=== PATIENT | male | born 1940 | race Caucasian/White ===

== ENCOUNTER 2017-01-30 09:09 | Inpatient (IN) | payer OTHER ==
--- NOTE | ~2017-01-30 | EKG ---
PATIENT: MADISON BRIGGS UNIT #: [id number] Ventricular Rate: 60 BPM Atrial Rate: 60 BPM P-R Interval: 156 ms QRS Duration: 100 ms Q-T Interval: 436 ms QTC Calculation(Bezet): 436 ms P [place]: 66 degrees Calculated R [place]: -21 degrees Calculated T [place]: 49 degrees Diagnosis Line: Normal sinus rhythm Diagnosis Line: Normal ECG Diagnosis Line: No previous ECGs available Diagnosis Line: Confirmed by RACHEL PETERS MD ([id number]) on 01/31/2017 Diagnosis Line: 4:06:17 PM INTERPRETING MD: FRAN NORTON
--- NOTE | ~2017-01-30 | EKG ---
PATIENT: MADISON BRIGGS UNIT #: [id number] Ventricular Rate: 57 BPM Atrial Rate: 57 BPM P-R Interval: 158 ms QRS Duration: 86 ms Q-T Interval: 428 ms QTC Calculation(Bezet): 416 ms P [place]: 10 degrees Calculated R [place]: -28 degrees Calculated T [place]: 15 degrees Diagnosis Line: Sinus bradycardia Diagnosis Line: Otherwise normal ECG Diagnosis Line: When compared with ECG of 02-FEB-2017 06:25, Diagnosis Line: (unconfirmed) Diagnosis Line: No significant change was found Diagnosis Line: Confirmed by OLENA CANO MD ([id number]) on 02/02/2017 Diagnosis Line: 10:47:47 PM INTERPRETING MD: JEROME NORTON
--- NOTE | ~2017-01-30 | CO ---
Unit #: [id number] #: [id number] Patient: MADISON BRIGGS [id number] [address] [place], [place] [address] [id number] I MR#: [id number] NAME: MADISON BRIGGS ROOM: 573 Age: 76 Sex: M Admission Date: 01/30/2017 : 1940 Attending Physician: Virginia Alba M.D. Primary Care Physician: J Carlos Stahl Jr., M.D. Consultation Date: 02/01/2017 CONSULTATION REPORT REASON FOR CONSULTATION New systolic congestive heart failure. HISTORY OF PRESENT ILLNESS This is a 76-year-old male with no prior cardiac history. He denies a history of chest pain, pressure, or discomfort. Denies shortness of air, orthopnea, dyspnea on exertion, or PND. Denies palpitations. He presented to the ER after 2 episodes of witnessed syncope per his . He was walking in his kitchen when he felt lightheaded and lost consciousness for several seconds. A few minutes later, he had a repeat episode with loss of consciousness of 4 to 5 minutes. Upon arousal, he was nauseated. Denies prior episodes. He states he is fairly active, walking daily in the park with his grandson with no shortness of air or chest discomfort. An echocardiogram was done, which showed a left ventricular ejection of 35% to 40%. We were asked to see him to evaluate for systolic congestive heart failure. He has a prior medical history of chronic kidney disorder, for which he follows with [facility]. He states he has one kidney smaller than the other and they just monitor his lab work. He also has a history of iron-deficiency anemia, GERD, history of bleeding ulcer, hypothyroidism, and history of snoring. PAST MEDICAL HISTORY 1. Chronic kidney disease. 2. Iron-deficiency anemia. 3. GERD. 4. History of bleeding ulcer. 5. Hypothyroidism. 6. Snoring. 7. Lifetime nonsmoker. PAST SURGICAL HISTORY 1. Hernia repair. 2. Colonoscopy. 3. EGD. HOME MEDICATIONS Pravastatin, Synthroid, iron supplement, and omeprazole. FAMILY HISTORY Denies a family history of premature coronary artery disease. SOCIAL HISTORY Unit #: [id number] #: [id number] Patient: MADISON BRIGGS The patient is retired. He denies alcohol or illicit drug use. He denies tobacco abuse. ALLERGIES No known drug allergies. REVIEW OF SYSTEMS Otherwise negative except for what was stated in the HPI. PHYSICAL EXAMINATION GENERAL: This is a pleasant 76-year-old male, in no acute distress. VITAL SIGNS: Temperature is 98.2, heart rate 68, respiratory rate 18, and blood pressure 142/82. Height 68 inches and 61.8 kilograms. HEENT: Head is atraumatic and normocephalic. Pupils are equal and round. Mucous membranes are moist. NECK: Supple. Trachea is midline. Negative for JVD. LUNGS: Clear to auscultation, decreased in the bases. Nonlabored respirations. CARDIOVASCULAR: S1 and S2. No murmur, rubs, or gallops. Regular rate and rhythm. ABDOMEN: Soft, nontender, and nondistended. EXTREMITIES: Pulses are palpable. No pedal edema. No cyanosis. NEUROLOGIC: Alert and oriented x3. Moves all extremities equally and follows command without difficulty. DIAGNOSTIC STUDIES LABORATORY RESULTS: Sodium 139, potassium 4, chloride 111, BUN 28, creatinine 1.9, and glucose 93. Hemoglobin 9.9, hematocrit 29.8, white blood cell count 5.4, and platelets 159. Sybjl-mm-dsmt troponin 0.05. Repeat troponin 0.03. Lipid profile; cholesterol 119, triglyceride 64, LDL 79, and HDL 27. TSH 3.61. IMAGING STUDIES: Right foot x-rays showed a subtle nondisplaced fracture at lateral malleolus. Chest x-ray showed a questionable infiltrate in the lateral right mid lung, unchanged from previous study and no acute findings. Incidentally, the chest x-ray also showed a questionable Paget disease of bone and proximal right humerus. 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 Carotid ultrasound showed less than 50% stenosis of right and left internal carotids. MRI of the brain showed no recent ischemic insult and moderately probable sequelae of small vessel disease. CARDIOVASCULAR STUDIES: Echocardiogram of 01/31/2017 showed left ventricular ejection fraction of 35% to 40%, mild generalized left ventricular hypokinesis, grade 1 diastolic dysfunction, pcjyxunx-ko-caactz tricuspid regurgitation, RVSP 33 mmHg, mild MR, and trace [place]. EKG showed normal sinus rhythm with nonspecific T-wave abnormalities. ASSESSMENT 1. Status post fall. 2. Right nondisplaced lateral malleolar fracture and avulsion fracture of medial malleolus. 3. Chronic kidney disease. 4. Cardiomyopathy with left ventricular ejection fraction 35% to 40%. 5. Hyperlipidemia. 6. Hypothyroidism. Unit #: [id number] #: [id number] Patient: MADISON BRIGGS 7. Syncope. PLAN Add Coreg 3.125 mg p.o. b.i.d. and hold for heart rate less than 60 or TERMITE TREATER less than 100. No RUPERTO inhibitor or ARBs due to chronic kidney disease. Plan for cardiac cath tomorrow with no LV gram due to renal function. Strict I's and O's. Daily weights. Fluid restriction 2000 mL. CBC and BMP in a.m. Thank you for asking us to see this patient. We appreciate the consult. Dictated by... SHOAIB Callahan/juan jose TD: 02/02/2017 17:32 JOB #: [id number] CONSULTATION REPORT Page 1 of 1 X X CONSULTATION REPORT
--- NOTE | ~2017-01-30 | CO ---
Unit #: [id number] #: [id number] Patient: MADISON BRIGGS [id number] [address] [place], [place] [address] [id number] I MR#: [id number] NAME: MADISON BRIGGS. ROOM: 334 Age: 76 Sex: M Admission Date: 01/30/2017 : 1940 Attending Physician: Virginia Alba M.D. Primary Care Physician: J Carlos Stahl Jr., M.D. Requesting Physician: Virginia Alba M.D. Consultation Date: 02/01/2017 CONSULTATION REPORT REASON FOR CONSULT Chronic kidney disease stage 3. Thank you very much for this consultation. HISTORY OF PRESENT ILLNESS The patient is a pleasant 76-year-old white male with a history of CKD stage 3 with baseline creatinine of around 2, who follows with me as an outpatient. He presents after a single episode at home. Workup has found that he has a new systolic congestive heart failure and he is going to be seen by cardiology later today with possible plans for cardiac cath. His creatinine has been stable. Given the possible need for dye exposure, nephrology consult has been requested. He did not have any complaints at the current time. PAST MEDICAL HISTORY Significant for: 1. CKD stage 3. 2. Hyperlipidemia. 3. Hypothyroidism. 4. Anemia. 5. Question Paget's disease. PAST SURGICAL HISTORY 1. Hernia repair. 2. Colonoscopy. 3. EGD. MEDICATIONS His home medications are reviewed per his Med Rec. FAMILY HISTORY Noncontributory. SOCIAL HISTORY Denies tobacco, alcohol or illicits. REVIEW OF SYSTEMS A twelve system review of systems is negative except as per HPI. PHYSICAL EXAMINATION VITAL SIGNS: Blood pressure 130s-150s/70s-80s, heart rate 60s-80s, respirations 16-18, T-max 98.1, sat'ing 100% on room air. GENERAL: He is a pleasant white male in no acute distress. Unit #: [id number] #: [id number] Patient: MADISON BRIGGS HEAD: Normocephalic. NECK: Supple. No JVD. LUNGS: Clear to auscultation bilaterally with no wheezes, rhonchi or crackles. HEART: Regular rate and rhythm. No murmurs, gallops or rubs. ABDOMEN: Soft, nontender, nondistended. Positive bowel sounds. EXTREMITIES: He has trace lower extremity edema. NEUROLOGICAL: Cranial nerves II-XII are intact to testing. Gait was not assessed. DIAGNOSTIC STUDIES LABORATORY: Sodium 139, potassium 4.0, chloride 111, bicarb 24, BUN 28, creatinine 1.9, glucose 93, calcium 8.5, white count 5.4, hemoglobin 9.9, platelets 159. IMPRESSION/PLAN 1. CKD stage 3: Patient with stable function. Will order prep for possible cardiac cath. 2. Hypertension. 3. Syncope. 4. New systolic congestive heart failure. 5. Ankle fracture. 6. Anemia. Thank you very much for this consultation. Dictated by... Carlos Maldonado M.D. LONG/da TD: 02/02/2017 07:57 JOB #: [id number] CONSULTATION REPORT Page 1 of 1 X Carlos Maldonado MD X CONSULTATION REPORT
--- NOTE | ~2017-01-30 | CT57 ---
[facility] A Service of [facility] RADIOLOGY TEXT RESULTS PATIENT: MADISON BRIGGS LOCATION: [facility] 334-01 : 40 UNIT #: [id number] AGE: [address]: Ilya Burroughs MD SEX: M ORDER DR: [id number] [facility] [address]. [place], [place] [address] [id number] I MR#: [id number] Acc #: [id number] NAME: MADISON BRIGGS. : 1940 SEX: M STUDY DATE/TIME: 01/30/2017 17:07 UNIT: [address] ROOM: [facility] STUDY DESCRIPTION: CT Chest Wo Cont Attending Physician: Virginia Alba M.D. Ordering Physician: Virginia Alba M.D. Primary Care Physician: J Carlos Stahl Jr., M.D. MEDICAL IMAGING REPORT This report is preliminary unless electronic signature is present EXAM CT scan of the chest without contrast. DATE OF EXAM 01/30/2017 HISTORY Shortness of breath beginning today with dizziness, syncope at 8 a.m. today. Chest radiograph obtained earlier today demonstrated questionable infiltrate right lower lobe. TECHNIQUE This CT exam was performed with one or more of the following radiation dose reduction techniques: automatic exposure control, adjustment of mA and/or kV according to patient size, and iterative reconstruction. FINDINGS The heart is normal in size. There is no significant thoracic adenopathy. There are no pleural effusions. Lung windows demonstrate focal areas of fibrosis at the lung apices, the right upper lobe and right middle lobe as well as the left lower lobe and lingula. No acute superimposed infiltrates are seen. Note is again made of findings consistent with Paget's disease of the proximal right humerus. IMPRESSION 1. Multifocal areas of chronic fibrosis involving both lungs. No acute superimposed infiltrates are seen. 2. 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 Dictated by... Benji Fairchild M.D. [facility] A Service of [facility] RADIOLOGY TEXT RESULTS PATIENT: MADISON BRIGGS LOCATION: [facility] 334-01 : 40 UNIT #: [id number] AGE: [address]: Ilya Burroughs MD SEX: M ORDER DR: THIS IS AN ELECTRONICALLY VERIFIED REPORT Benji Fairchild M.D. at 01/31/2017 3:16 PM PITER/mio TD: 01/30/2017 21:40 JOB #: [id number] MEDICAL IMAGING REPORT Page 1 of 1 COPY
--- NOTE | ~2017-01-30 | EKG ---
PATIENT: MADISON BRIGGS UNIT #: [id number] Ventricular Rate: 68 BPM Atrial Rate: 68 BPM P-R Interval: 164 ms QRS Duration: 90 ms Q-T Interval: 406 ms QTC Calculation(Bezet): 431 ms P [place]: 57 degrees Calculated R [place]: -20 degrees Calculated T [place]: 31 degrees Diagnosis Line: Normal sinus rhythm with sinus arrhythmia Diagnosis Line: Normal ECG Diagnosis Line: When compared with ECG of 02-FEB-2017 16:30, Diagnosis Line: No significant change was found Diagnosis Line: Confirmed by OLENA CANO MD ([id number]) on 02/04/2017 Diagnosis Line: 11:10:51 PM INTERPRETING MD: JEROME NORTON
--- NOTE | ~2017-01-30 | CR279 ---
[facility] A Service of [facility] & [facility] RADIOLOGY TEXT RESULTS PATIENT: MADISON BRIGGS LOCATION: [facility] 334-01 : 40 UNIT #: [id number] AGE: [address]: Ilya Burroughs MD SEX: M ORDER DR: [id number] [facility] [address] [facility]. [place], [place] [address] [id number] E MR#: [id number] Acc #: [id number] NAME: MADISON BRIGGS : 1940 SEX: M STUDY DATE/TIME: 01/30/2017 10:17 UNIT: [facility] ROOM: STUDY DESCRIPTION: CR Wrist 2 View Rt Attending Physician: Lily Marie M.D. Ordering Physician: Lily Marie M.D. Primary Care Physician: J Carlos Stahl Jr., M.D. MEDICAL IMAGING REPORT This report is preliminary unless electronic signature is present EXAM Right wrist, 01/30/2017. HISTORY 76-year-old male with right wrist pain status post fall yesterday. COMPARISON None FINDINGS 3 views of the right wrist demonstrate no acute fracture or dislocation. Mild dorsal soft tissue swelling. IMPRESSION Mild dorsal soft tissue swelling. No evidence of acute fracture or dislocation. Dictated by... Warren Crespo M.D. THIS IS AN ELECTRONICALLY VERIFIED REPORT Warren Crespo M.D. at 01/31/2017 8:10 AM LEEROY/calixto TD: 01/30/2017 15:08 JOB #: [id number] MEDICAL IMAGING REPORT Page 1 of 1 COPY
--- NOTE | ~2017-01-30 | HP ---
Unit #: [id number] #: [id number] Patient: MADISON BRIGGS [id number] [address] [place], [place] [address] [id number] I MR#: [id number] NAME: MADISON BRIGGS. ROOM: 334 Age: 76 Sex: M Admission Date: 01/30/2017 : 1940 Attending Physician: Virginia Alba M.D. Primary Care Physician: J Carlos Stahl Jr., M.D. HISTORY AND PHYSICAL REASON FOR ADMISSION Syncopal episode x2 at home. HISTORY OF PRESENT ILLNESS The patient is a very pleasant 76-year-old male routinely followed by Dr. Stahl as his primary care physician as an outpatient, who presented initially after he began having several lightheadedness episodes while he was at home. He had initial episode where he became very faint, quite disoriented. He actually was walking. He subsequently sat down. It lasted several seconds and then he came to. Several minutes later he had a similar episode where he formally passed out for approximately four to five minutes. When he awoke he did have some associated nausea. He felt different and/or odd and subsequently presented to the hospital for further evaluation. His is currently present at bedside. She states that he has had no prior episodes of this happening before. There were no recent URI signs or symptoms and he states that he has been in his usual state of health and has tried no new medications and/or no new dietary restrictions. PAST MEDICAL HISTORY A prior history of GERD with associated hematemesis back in 2012, iron deficiency anemia, hypothyroidism, hyperlipidemia. PAST SURGICAL HISTORY Hernia repair, colonoscopy, EGD. HOME MEDICATIONS Pravastatin, Synthroid, iron supplement, omeprazole. FAMILY HISTORY Reviewed, positive for CVA father, 76 and positive coronary artery disease, negative diabetes. SOCIAL HISTORY Patient is currently retired. He denies any alcohol use, denies any tobacco use. He denies any illicit drug use. REVIEW OF SYSTEMS Please see HPI. Twelve points otherwise negative except for those Unit #: [id number] #: [id number] Patient: MADISON BRIGGS positive noted in the HPI. PHYSICAL EXAMINATION VITAL SIGNS: Temperature 98.2, pulse 94, respiratory rate 18, blood pressure 112/72. GENERAL APPEARANCE: The patient is a 76-year-old male lying comfortably in no acute distress. HEAD EXAM: Atraumatic and normocephalic. EAR EXAM: Tympanic membranes do not reveal any erythema or injection. NECK EXAM: Supple. CVS: S1, S2, without murmur. RESPIRATORY EXAM: Clear. GI/ABDOMEN: Nontender, nondistended. LOWER EXTREMITIES: Have no evidence of any lower extremity edema. Right ankle exam does reveal tenderness and currently boot is in place. DIAGNOSTIC STUDIES IMAGING: He did undergo an x-ray in the ER which does reveal suspected subtle nondisplaced fracture at the lateral malleolus. A chest x-ray performed in the emergency room does not show any acute process. There is a questionable infiltrate in the lateral right mid lung field however it is similar to January 13, 2017. There is questionable Paget disease of bone visualized in the proximal right humerus. LABORATORY: Initial laboratory studies show a creatinine of 1.9 with unclear baseline; CBC shows a hemoglobin of 12.3, MCV normal at 91.6, white count negative; cardiac enzymes first set negative. INITIAL ADMISSION DIAGNOSES 1. Syncope x2. 2. Acute kidney injury with unclear baseline creatinine. 3. Questionable Paget disease as seen on chest x-ray. 4. Questionable right middle lung infiltrate and/or pneumonia. 5. Prior history of anemia. 6. Gastroesophageal reflux disease. 7. Hypothyroidism. 8. Hyperlipidemia. PLAN Admission telemetry floor. Check CT chest. Orthopedic consultation. Two-echo. MRI brain. Ultrasound carotids. Syncope workup. Routine laboratory studies. Will begin prophylactically IV antibiotics until CT chest returns back and if negative these may be discontinued. Hematology consultation may be obtained if CT chest is positive for aforementioned findings consistent with Paget disease. Plans have been reviewed with patient in detail. Patient is Full Code. Dictated by Dang Nava/victorina TD: 01/30/2017 19:47 Unit #: [id number] #: [id number] Patient: MADISON BRIGGS JOB #: [id number] HISTORY AND PHYSICAL Page 1 of 1 X Virginia Alba MD X HISTORY AND PHYSICAL
--- NOTE | ~2017-01-30 | CR21 ---
[facility] A Service of [facility] RADIOLOGY TEXT RESULTS PATIENT: MADISON BRIGGS LOCATION: [facility] 334-01 : 40 UNIT #: [id number] AGE: [address]: Ilya Burroughs MD SEX: M ORDER DR: [id number] [facility] [address] [place], [place] [address] [id number] E MR#: [id number] Acc #: [id number] NAME: MADISON BRIGGS : 1940 SEX: M STUDY DATE/TIME: 01/30/2017 10:19 UNIT: [place] ROOM: STUDY DESCRIPTION: CR Ankle Min 3 Views Rt Attending Physician: Lily Marie M.D. Ordering Physician: Lily Marie M.D. Primary Care Physician: J Carlos Stahl Jr., M.D. MEDICAL IMAGING REPORT This report is preliminary unless electronic signature is present EXAM Right ankle 01/30/2017 HISTORY 76-year-old male with right ankle pain status post fall yesterday. COMPARISON Right ankle 05/18/2012 FINDINGS 3 views of the right ankle demonstrates a 1.5 cm avulsed osseous fragment adjacent to the medial malleolus, consistent with avulsion fracture. Ankle mortise is symmetric. Talar dome intact. There is also a suspected nondisplaced fracture of the lateral malleolus. Moderate soft-tissue swelling around the ankle. No significant ankle effusion. IMPRESSION 1. Thin 1.5 cm avulsed osseous fragment adjacent to the medial malleolus, consistent with avulsion fracture. 2. Suspected subtle nondisplaced fracture of the lateral malleolus. 3. Moderate soft-tissue swelling around the ankle. Dictated by... Warren Crespo M.D. THIS IS AN ELECTRONICALLY VERIFIED REPORT Warren Crespo M.D. at 01/31/2017 8:10 AM Handy TD: 01/30/2017 15:05 JOB #: [id number] MEDICAL IMAGING REPORT [facility] A Service of [facility] RADIOLOGY TEXT RESULTS PATIENT: MADISON BRIGGS LOCATION: [facility] 334-01 : 40 UNIT #: [id number] AGE: [address]: Ilya Burroughs MD SEX: M ORDER DR: Page 1 of 1 COPY
--- NOTE | ~2017-01-30 | MR18 ---
[facility] A Service of [facility] & [facility] RADIOLOGY TEXT RESULTS PATIENT: MADISON BRIGGS LOCATION: [facility] 334- : 40 UNIT #: [id number] AGE: [address]: Virginia Alba MD SEX: M ORDER DR: [id number] [facility] [address]. [place], [place] [address] [id number] I MR#: [id number] Acc #: [id number] NAME: MADISON BRIGGS. : 1940 SEX: M STUDY DATE/TIME: 01/31/2017 12:13 UNIT: [address] ROOM: [facility] STUDY DESCRIPTION: MR Brain Wo Contrast Attending Physician: Ilya Burroughs M.D. Ordering Physician: Virginia Alba M.D. Primary Care Physician: J Carlos Stahl Jr., M.D. MRI CENTER REPORT This report is preliminary unless electronic signature is present. EXAM MRI brain without HISTORY Dizziness and syncope yesterday morning per patient. No history of cancer. No trauma history prior to the dizziness. COMMENT MRI of the brain was performed without contrast using routine 1.5T imaging technique. Preliminary wet reading by Dr. Crespo [id number] 01/31/2017. There is no evidence for a recent ischemic insult on the diffusion series. There is generalized atrophy, not unexpected for age group. There is no MRI evidence for intracranial hemorrhage. There is no extraaxial fluid collection. There is moderate white matter signal abnormality most confluent in the deep to periventricular white matter probably due to small vessel disease and age group. Lacunar insults bilateral basal ganglia and thalami. Small chronic lacunes left cerebellar hemisphere peripherally. The major intracranial flow voids are maintained. Mucosal thickening ethmoid air cells. Mastoid air cells show minor fluid or inflammatory change. No intracranial mass effect. IMPRESSION 1. No evidence for a recent ischemic insult on the diffusion series. 2. Moderate probable sequelae of small vessel disease. Dictated by... Yulissa Cronin M.D. THIS IS AN ELECTRONICALLY VERIFIED REPORT [facility] A Service of [facility] & [facility] RADIOLOGY TEXT RESULTS PATIENT: MADISON BRIGGS LOCATION: [facility] 334-01 : 40 UNIT #: [id number] AGE: [address]: Virginia Alba MD SEX: M ORDER DR: Yulissa Cronin M.D. at 02/01/2017 3:25 PM NÉSTOR/jesus manuel TD: 02/01/2017 10:21 JOB #: [id number] MRI CENTER REPORT Page 1 of 1 COPY
--- NOTE | ~2017-01-30 | EKG ---
PATIENT: MADISON BRIGGS UNIT #: [id number] Ventricular Rate: 58 BPM Atrial Rate: 58 BPM P-R Interval: 170 ms QRS Duration: 90 ms Q-T Interval: 412 ms QTC Calculation(Bezet): 404 ms P [place]: 34 degrees Calculated R [place]: -26 degrees Calculated T [place]: 31 degrees Diagnosis Line: Sinus bradycardia Diagnosis Line: Otherwise normal ECG Diagnosis Line: When compared with ECG of 30-JAN-2017 10:54, Diagnosis Line: No significant change was found Diagnosis Line: Confirmed by OLENA CANO MD ([id number]) on 02/02/2017 Diagnosis Line: 10:46:16 PM INTERPRETING MD: JEROME NORTON
--- NOTE | ~2017-01-30 | CT71 ---
[facility] A Service of [facility] RADIOLOGY TEXT RESULTS PATIENT: MADISON BRIGGS LOCATION: [facility] 334-01 : 40 UNIT #: [id number] AGE: [address]: Ilya Burroughs MD SEX: M ORDER DR: [id number] [facility] [address]. [place], [place] [address] [id number] E MR#: [id number] Acc #: [id number] NAME: MADISON BRIGGS : 1940 SEX: M STUDY DATE/TIME: 01/30/2017 10:45 UNIT: [facility] ROOM: STUDY DESCRIPTION: CT Head Wo Contrast Attending Physician: Lily Marie M.D. Ordering Physician: Lily Marie M.D. Primary Care Physician: J Carlos Stahl Jr., M.D. MEDICAL IMAGING REPORT This report is preliminary unless electronic signature is present EXAM CT head without contrast. DATE OF EXAM 01/30/2017 HISTORY 76-year-old male with dizziness and syncope beginning at [address] head, 02/18/2016. TECHNIQUE Routine unenhanced axial images performed through the brain. This CT exam was performed with one or more of the following radiation dose reduction techniques: automatic exposure control, adjustment of mA and/or kV according to patient size, and iterative reconstruction. FINDINGS No hemorrhage, acute infarction, mass lesion, or abnormal extraaxial fluid collection. No midline shift or focal mass effect. Ventricular system normal in size and configuration. Mild generalized atrophy and mild chronic small vessel disease is unchanged from the prior exam. No acute bony abnormality. Visualized paranasal sinuses and mastoid air cells clear. IMPRESSION 1. No acute intracranial abnormality. 2. Stable, age-related atrophy and mild chronic small vessel disease. Dictated by... Warren Crespo M.D. [facility] A Service of [facility] RADIOLOGY TEXT RESULTS PATIENT: MADISON BRIGGS LOCATION: [facility] 334-01 : 40 UNIT #: [id number] AGE: [address]: Ilya Burroughs MD SEX: M ORDER DR: THIS IS AN ELECTRONICALLY VERIFIED REPORT Warren Crespo M.D. at 01/31/2017 8:11 AM LEEROY/mio TD: 01/30/2017 15:49 JOB #: [id number] MEDICAL IMAGING REPORT Page 1 of 1 COPY
--- NOTE | ~2017-01-30 | CR72 ---
[facility] A Service of [facility] & [facility] RADIOLOGY TEXT RESULTS PATIENT: MADISON BRIGGS LOCATION: [facility] 334-01 : 40 UNIT #: [id number] AGE: [address]: Ilya Burroughs MD SEX: M ORDER DR: [id number] [facility] [address] [place], [place] [address] [id number] E MR#: [id number] Acc #: [id number] NAME: MADISON BRIGGS : 1940 SEX: M STUDY DATE/TIME: 01/30/2017 10:15 UNIT: [facility] ROOM: STUDY DESCRIPTION: CR Chest Single View Portable Attending Physician: Lily Marie M.D. Ordering Physician: Lily Marie M.D. Primary Care Physician: J Carlos Stahl Jr., M.D. MEDICAL IMAGING REPORT This report is preliminary unless electronic signature is present EXAM Portable chest, 01/30/2017. HISTORY 76-year-old male with shortness of air beginning yesterday. COMPARISON CT chest, 04/26/2013. Chest x-ray, 01/13/2017. FINDINGS Frontal chest demonstrates minimal atelectasis/infiltrate in the lateral right midlung field, similar to 01/13/2017. The lungs are otherwise clear. Previously noted nodular density in the right upper lobe is not clearly visualized on today's exam. No pleural effusion or pneumothorax. Heart size and mediastinum are within normal limits. Pulmonary vasculature unremarkable. Changes consistent with Paget's disease of bone in the visualized proximal right humerus. IMPRESSION 1. Atelectasis/infiltrate in the lateral right mid lung field, similar to 01/13/2017. Previously noted nodular density in the right upper lung field is not clearly seen on today's exam. 2. Changes consistent with Paget's disease of bone in the visualized proximal right humerus. Dictated by... Warren Crespo M.D. THIS IS AN ELECTRONICALLY VERIFIED REPORT Warren Crespo M.D. at 01/31/2017 8:10 AM LEEROY/latoya TD: 01/30/2017 14:56 [facility] A Service of [facility] & [facility] RADIOLOGY TEXT RESULTS PATIENT: MADISON BRIGGS LOCATION: [facility] 334-01 : 40 UNIT #: [id number] AGE: [address]: Ilya Burroughs MD SEX: M ORDER DR: JOB #: [id number] MEDICAL IMAGING REPORT Page 1 of 1 COPY
--- NOTE | ~2017-01-30 | CO ---
Unit #: [id number] #: [id number] Patient: MADISON YODER [id number] [address] [address] [id number] I MR#: [id number] NAME: MADISON YODER. ROOM: 573 Age: 76 Sex: M Admission Date: 01/30/2017 : 1940 Attending Physician: Virginia Alba M.D. Primary Care Physician: J Carlos Stahl Jr., M.D. Consultation Date: 02/01/2017 CONSULTATION REPORT CHIEF COMPLAINT Right ankle pain. HISTORY OF PRESENT ILLNESS MR. Yoder is a 76-year-old male with past medical history of GERD, iron deficiency anemia, hypothyroidism, and hyperlipidemia, who presented to [facility] ER with complaints of several episodes of lightheadedness as well as right ankle pain. He was admitted to [facility] for syncope and further workup. While in the ER, x-rays were obtained at the right ankle, which demonstrated a non-displaced lateral malleolus fracture as well as avulsion fracture of the medial malleolus. Orthopedics were consulted for further treatment. The patient states that on 01/28/2017, he was working in the yard, when he tripped and fell and states that he hyperextended his right ankle. He states that after the fall, he was only able to partially weigh bear on the right ankle. He then developed increased swelling. He had 2 episodes of lightheadedness, so he decided to come to the ER for further evaluation. He reports pain over the medical and lateral malleolus as well as diffuse swelling and ecchymosis. He states that his pain is well improved from the initial injury. PAST MEDICAL HISTORY 1. GERD. 2. Iron deficiency anemia. 3. Hypothyroidism. 4. Hyperlipidemia. PAST SURGICAL HISTORY 1. Hernia repair. 2. Colonoscopy. 3. EGD. HOME MEDICATIONS 1. Pravastatin. 2. Synthroid. 3. Iron supplement. 4. Omeprazole. ALLERGIES No known drug allergies. FAMILY HISTORY Unit #: [id number] #: [id number] Patient: MADISON YODER Noncontributory to current illness. SOCIAL HISTORY The patient is retired. He lives at home with his . He denies any alcohol, tobacco, or illicit drug use. REVIEW OF SYSTEMS A 10-point review of systems is negative except for those listed in the HPI. PHYSICAL EXAMINATION VITAL SIGNS: Temperature is 97.9, pulse 76, respirations 18, and blood pressure is 136/71. GENERAL APPEARANCE: This is a health appearing 76-year-old male, sitting in the recliner. He is in no acute distress. HEENT: Pupils are equal, round, and reactive to light. Extraocular movements are intact. NECK: Supple without adenopathy. CARDIAC: Regular rate and rhythm. LUNGS: Symmetric chest rise, no increased work of breathing. ABDOMEN: Soft. PSYCHIATRIC: The patient is awake, alert, and oriented x3. NEUROLOGIC: Cranial nerves II through XII are grossly intact. MUSCULOSKELETAL: The right ankle was examined. There was 2+ ankle and foot swelling. There was also diffuse ecchymosis over the right ankle and foot. He is tender over medial and lateral malleolus. He has dorsiflexion to neutral position and plantar flexion to 20 degrees. He has normal sensation to light touch in all five digits. His toes are warm and well perfused. DIAGNOSTIC STUDIES LABORATORY RESULTS: White blood cell count is 5.4, hemoglobin is 9.9. RADIOLOGY REPORTS: Plain film radiographs reviewed of the right ankle, which demonstrate a non-displaced lateral malleolus fracture as well as an avulsion fracture of the medial malleolus. ASSESSMENT Right ankle non-displaced lateral malleolus fracture and avulsion fracture of the medial malleolus. PLAN He has sustained a non-displaced lateral malleolus fracture as well as an avulsion fracture of the medial malleolus on 01/28/2017. After reviewing his x-rays, no surgical treatment is required. We will allow him to weight bear as tolerated in a camp walker boot. He will work with PT on ambulation. He is to ice and elevate his right ankle to help with this swelling. We will have a followup in the office with Dr. Mabry in 2 weeks' time for repeat x-rays of the right ankle. Dictated by... Henri Schneider APRN for Dang Bello/juan jose TD: 02/02/2017 17:34 JOB #: [id number] Unit #: [id number] #: [id number] Patient: MADISON YODER CONSULTATION REPORT Page 1 of 1 X HENRI SCHNEIDER APRN CONSULTATION REPORT
--- NOTE | ~2017-01-30 | DS ---
Unit #: [id number] #: [id number] Patient: MADISON BRIGGS [id number] [address] [place], [place] [address] [id number] I MR#: [id number] NAME: MADISON BRIGGS. ROOM: 573 Age: 76 Sex: M Admission Date: 01/30/2017 : 1940 Discharge Date: 02/03/2017 Attending Physician: Virginia Alba M.D. Primary Care Physician: J Carlos Stahl Jr., M.D. DISCHARGE SUMMARY REASON FOR ADMISSION Syncopal episode at home x2. HISTORY OF PRESENT ILLNESS Please seen H and P for complete details of initial part of hospital stay. HOSPITAL COURSE He underwent routine cardiac enzymes, which were negative. He also underwent routine laboratory studies, which did reveal a decreased vitamin B12 level of 291, which was appropriately treated while he was here in the hospital. At the time of discharge he should followup with his PCP for appropriate vitamin B12 IM injections perhaps on a q.2 weekly basis. It was noted patient did, secondary to syncopal episode, fall awkwardly and developed a right ankle avulsion fracture. We consulted orthopedic services and placed in the patient in a walking boot. They recommended outpatient followup with Dr. Mabry in approximately two weeks post discharge. Initial chest x-ray raised the possibility of community acquired pneumonia, as well as Paget disease within the right humerus. Therefore, CT chest noncontrast was performed, which did reveal multifocal areas of chronic fibrosis but there was no acute infiltrate, which was noted. Findings characteristic of Paget disease and a proximal right humerus were also again commented upon. Secondary to patient's prior history of hypertension, as well as syncope, we performed an MRI of brain without contrast and did not reveal any acute process. This was done on 01/31/2017. Patient underwent a 2D echo cardiogram, which did reveal valvular heart disease, tricuspid regurgitation, as well as new systolic heart failure with ejection fraction of 35% to 40%, therefore we placed consultation Dr. Camarena. Secondary to elevated creatinine, as well as history of chronic kidney disease with a baseline creatinine close to 1.8 to 2.0. Consultation was also placed to Dr. Moise. Ultimately on 02/02/2017 the patient underwent cardiac catheterization for ischemic evaluation. It was noted patient did have 99% lesion in the proximal left circumflex, undergoing stent placement. Patient was postoperatively followed on telemetry floor and no acute Unit #: [id number] #: [id number] Patient: MADISON BRIGGS events were noted. At the time of discharge, the patient will be prescriptions for Lipitor 80 mg, Coreg, Brilinta, as well as aspirin. All medications will be reviewed and managed by cardiology. His Synthroid at 25 mcg p.o. daily will be continued, as will Tylenol on a p.r.n. basis. The patient was instructed to followup with Dr. Camarena as an outpatient in approximately four to six weeks. He will also followup with his primary care physician, Dr. Stahl at time of discharge in approximately two weeks. FINAL DISCHARGE DIAGNOSES 1. Coronary artery disease, status post stent placement, left circumflex. 2. New systolic heart failure. 3. Moderate to severe tricuspid regurgitation/valvular heart disease new. 4. Status post syncopal episode x2 at home. 5. Chronic kidney disease, baseline creatinine 2.0, followed by Dr. Moise as an outpatient. 6. Anemia, iron deficiency, likely secondary to chronic kidney disease. Baseline hemoglobin close to 9 to 10. 7. History of hypertension. 8. Hypothyroidism. FINAL DISCHARGE MEDICATIONS To be reviewed by cardiology but will include the followin. Lipitor 80 mg p.o. daily. 2. Brilinta 90 mg p.o. b.i.d. 3. Aspirin 81 mg p.o. daily. 4. Synthroid 25 mcg p.o. daily. 5. Sublingual Nitro as directed. 6. Tylenol 650 mg p.o. q.6 p.r.n. RUPERTO/ARB was not prescribed, although patient does have a prior history of systolic heart failure, secondary to patient's elevated creatinine. Dictated by... Dang Nava/sherwin TD: 02/03/2017 10:33 JOB #: [id number] DISCHARGE SUMMARY Page 1 of 1 X Virginia Alba MD X DISCHARGE SUMMARY
--- NOTE | ~2017-01-30 | US37 ---
[facility] A Service of [facility] & [facility] RADIOLOGY TEXT RESULTS PATIENT: MADISON BRIGGS LOCATION: [facility] 573-01 : 40 UNIT #: [id number] AGE: [address]: Virginia Alba MD SEX: M ORDER DR: [id number] [facility] [address] [place], [place] [address] [id number] I MR#: [id number] Acc #: [id number] NAME: MADISON BRIGGS. : 1940 SEX: M STUDY DATE/TIME: 01/31/2017 10:53 UNIT: C3A PCU ROOM: [facility] STUDY DESCRIPTION: US Carotid W/Doppler Bilateral Attending Physician: Ilya Burroughs M.D. Ordering Physician: Virginia Alba M.D. Primary Care Physician: J Carlos Stahl Jr., M.D. MEDICAL IMAGING REPORT This report is preliminary unless electronic signature is present EXAM Bilateral carotid Doppler, 01/31/2017. HISTORY Neck pain, bruit. FINDINGS The right common carotid, internal carotid and external carotid arteries are patent with minimal plaque noted in the carotid bulb and proximal internal carotid artery. Velocity of the common carotid artery is 82 cm/sec. Peak systolic velocity of the right proximal internal carotid artery is 57 cm/sec, with an end diastolic velocity of 13 cm/sec, for an ICA:CCA ratio of 0.7. External carotid artery had a velocity of 88 cm/sec. The vertebral artery is visualized with antegrade flow. The left common carotid, internal carotid, and external carotid arteries are patent with mild plaque noted at the carotid bulb and internal carotid artery. Velocity of the common carotid artery is 75 cm/sec. Peak systolic velocity of the left proximal internal carotid artery is 49 cm/sec, with an end diastolic velocity of 18 cm/sec, for an ICA:CCA ratio of 0.65. External carotid artery had a velocity of 67 cm/sec. The vertebral artery is visualized with antegrade flow. IMPRESSION 1. Less than 50% stenosis of the right and left internal carotid arteries. 2. No stenosis of the external carotid arteries. 3. Antegrade flow of the vertebral arteries. Dictated by... [facility] A Service of [facility] & [facility] RADIOLOGY TEXT RESULTS PATIENT: MADISON BRIGGS LOCATION: [facility] 573-01 : 40 UNIT #: [id number] AGE: [address]: Virginia Alba MD SEX: M ORDER DR: Kevin Fernandez M.D. THIS IS AN ELECTRONICALLY VERIFIED REPORT Kevin Fernandez M.D. at 02/04/2017 2:55 PM ZAIDA/calixto TD: 01/31/2017 14:12 JOB #: [id number] MEDICAL IMAGING REPORT Page 1 of 1 COPY
[~2017-01-30 09:09] MED LIST: IRON SUPPLEMENT1 TAB PO; LORTAB 7.51 TAB 7.5/ PO; MULTI-VITAMIN1 EAC1 PO; MULTIPLE VITAMI1 T11 PO; OMEPRAZOLE40 MG PO; [UNRECOGNIZED DRUG - REMARK]
[2017-01-30 11:10] LABS: BASOPHIL% 0.3 % (0-2.5); EOSINOPHIL% 0.4 % (0.0-7.0); HEMOGLOBIN 12.3 gm/dL (13.0-16.0); LYMPHOCYTE# 0.9 X10e3 (1.0-3.5); LYMPHOCYTE% 9.4 % (17.0-45.0); MEAN CELL VOLUME 91.6 FL (83-96); MEAN CORPUSCULAR HEMOGLOBIN 30.3 PG (28-34); MEAN CORPUSCULAR HGB CONC 33.1 g/dL (30-36); MEAN PLATELET VOLUME 9.2 FL (6.5-11.5); MONOCYTE# 0.8 X10e3 (0-1.0); MONOCYTE% 8.1 % (3.0-12.0); NEUTROPHIL# 7.7 X10e3 (1.5-7.1); NEUTROPHIL% 81.8 % (40-75); PLATELET COUNT 186 X10e3 (140-420); RED BLOOD COUNT 4.04 X10e (3.90-5.60); RED CELL DISTRIBUTION WIDTH 14.4 % (11.0-15.5); WHITE BLOOD COUNT 9.4 X10e3 (4.0-10.5)
[2017-01-30 11:20] LABS: POC - CKMB 2.9 ng/mL (0.0-7.9); POC - TROPONIN <0.05 ng/mL (<=0.05)
[2017-01-30 11:28] LABS: DIFF IND NO
[2017-01-30 11:43] LABS: ALBUMIN SERUM 3.4 g/dL (3.5-5.0); BILIRUBIN, DIRECT 0.2 mg/dL (0.0-0.2); BILIRUBIN,TOTAL 1.2 mg/dL (0.2-2.0); BUN/CREATININE RATIO 18.94; CREATININE SERUM 1.9 mg/dL (0.6-1.4); GLOM FILT RATE Estimated 33.5 mL/min (>60); POTASSIUM 4.6 mmol/L (3.5-5.1); PROTEIN TOTAL SERUM 7.7 g/dL (6.0-8.3)
[2017-01-30] MEDS ORDERED: PRAVASTATIN SOD40 MG PO (13:15)
[2017-01-30] MEDS ORDERED: SYNTHROID PO (13:15)
[2017-01-30 18:39] LABS: %MB 2.3 % (0.0-4.0); MB 9.4 ng/ml
[2017-01-31 00:10] LABS: %MB 1.8 % (0.0-4.0); MB 6.8 ng/ml
[2017-01-31 06:23] LABS: BASOPHIL% 0.5 % (0-2.5); EOSINOPHIL# 0.1 X10e3 (0-0.7); EOSINOPHIL% 1.6 % (0.0-7.0); HEMATOCRIT 31.4 % (38.0-50.0); LYMPHOCYTE# 1.2 X10e3 (1.0-3.5); LYMPHOCYTE% 19.6 % (17.0-45.0); MEAN CELL VOLUME 91.7 FL (83-96); MEAN CORPUSCULAR HEMOGLOBIN 29.9 PG (28-34); MEAN CORPUSCULAR HGB CONC 32.6 g/dL (30-36); MEAN PLATELET VOLUME 9.9 FL (6.5-11.5); MONOCYTE# 0.8 X10e3 (0-1.0); MONOCYTE% 12.5 % (3.0-12.0); NEUTROPHIL# 4.1 X10e3 (1.5-7.1); NEUTROPHIL% 65.8 % (40-75); PLATELET COUNT 161 X10e3 (140-420); RED BLOOD COUNT 3.42 X10e (3.90-5.60); WHITE BLOOD COUNT 6.2 X10e3 (4.0-10.5)
[2017-01-31 06:28] LABS: DIFF IND NO; HEMOGLOBIN 10.3 gm/dL (13.0-16.0)
[2017-01-31 07:07] LABS: ALBUMIN SERUM 2.8 g/dL (3.5-5.0); BILIRUBIN,TOTAL 0.6 mg/dL (0.2-2.0); BUN/CREATININE RATIO 15.5; CALCIUM SERUM 8.5 mg/dL (8.4-10.2); GLOM FILT RATE Estimated 31.5 mL/min (>60); POTASSIUM 4.1 mmol/L (3.5-5.1); PROTEIN TOTAL SERUM 6.2 g/dL (6.0-8.3)
[2017-02-01 05:40] LABS: BASOPHIL% 0.7 % (0-2.5); EOSINOPHIL# 0.2 X10e3 (0-0.7); HEMATOCRIT 29.8 % (38.0-50.0); HEMOGLOBIN 9.9 gm/dL (13.0-16.0); LYMPHOCYTE# 1.3 X10e3 (1.0-3.5); LYMPHOCYTE% 24.3 % (17.0-45.0); MEAN CELL VOLUME 90.4 FL (83-96); MEAN CORPUSCULAR HGB CONC 33.2 g/dL (30-36); MEAN PLATELET VOLUME 9.2 FL (6.5-11.5); MONOCYTE# 0.7 X10e3 (0-1.0); MONOCYTE% 12.2 % (3.0-12.0); NEUTROPHIL# 3.2 X10e3 (1.5-7.1); NEUTROPHIL% 59.8 % (40-75); PLATELET COUNT 159 X10e3 (140-420); RED BLOOD COUNT 3.29 X10e (3.90-5.60); RED CELL DISTRIBUTION WIDTH 14.2 % (11.0-15.5); WHITE BLOOD COUNT 5.4 X10e3 (4.0-10.5)
[2017-02-01 05:44] LABS: DIFF IND NO
[2017-02-01 06:14] LABS: BUN/CREATININE RATIO 14.73; CALCIUM SERUM 8.5 mg/dL (8.4-10.2); CREATININE SERUM 1.9 mg/dL (0.6-1.4); GLOM FILT RATE Estimated 33.5 mL/min (>60)
[2017-02-02 05:24] LABS: HEMATOCRIT 28.7 % (38.0-50.0); HEMOGLOBIN 9.5 gm/dL (13.0-16.0); MEAN CELL VOLUME 91.7 FL (83-96); MEAN CORPUSCULAR HEMOGLOBIN 30.3 PG (28-34); MEAN CORPUSCULAR HGB CONC 33.1 g/dL (30-36); MEAN PLATELET VOLUME 9.5 FL (6.5-11.5); RED BLOOD COUNT 3.13 X10e (3.90-5.60); RED CELL DISTRIBUTION WIDTH 14.1 % (11.0-15.5); WHITE BLOOD COUNT 4.9 X10e3 (4.0-10.5)
[2017-02-02 05:43] LABS: INR 1.1; PARTIAL THROMBOPLASTIN TIME 22.4 SECONDS (23.5-31.3); PROTHROMBIN TIME (PATIENT) 11.3 SECONDS (9.6-11.5)
[2017-02-02 06:35] LABS: BUN/CREATININE RATIO 14.44; CALCIUM SERUM 8.5 mg/dL (8.4-10.2); CREATININE SERUM 1.8 mg/dL (0.6-1.4); GLOM FILT RATE Estimated 35.8 mL/min (>60); POTASSIUM 4.5 mmol/L (3.5-5.1)
[2017-02-03 00:35] LABS: ANGIO %MB 1.9 % (0.0-4.0); ANGIO MB 1.6 ng/ml
[2017-02-03 08:50] LABS: ANGIO %MB 2.3 % (0.0-4.0); ANGIO MB 1.6 ng/ml
[2017-02-03 08:52] LABS: BASOPHIL% 0.5 % (0-2.5); EOSINOPHIL# 0.1 X10e3 (0-0.7); EOSINOPHIL% 2.7 % (0.0-7.0); HEMATOCRIT 30.1 % (38.0-50.0); MEAN CELL VOLUME 91.4 FL (83-96); MEAN CORPUSCULAR HEMOGLOBIN 30.4 PG (28-34); MEAN CORPUSCULAR HGB CONC 33.2 g/dL (30-36); MEAN PLATELET VOLUME 9.6 FL (6.5-11.5); MONOCYTE# 0.5 X10e3 (0-1.0); MONOCYTE% 8.4 % (3.0-12.0); NEUTROPHIL# 3.8 X10e3 (1.5-7.1); NEUTROPHIL% 69.4 % (40-75); PLATELET COUNT 176 X10e3 (140-420); RED CELL DISTRIBUTION WIDTH 14.2 % (11.0-15.5); WHITE BLOOD COUNT 5.4 X10e3 (4.0-10.5)
[2017-02-03 08:58] LABS: DIFF IND NO
[2017-02-03 09:03] LABS: BUN/CREATININE RATIO 13.8; CALCIUM SERUM 8.6 mg/dL (8.4-10.2); CREATININE SERUM 2.1 mg/dL (0.6-1.4); GLOM FILT RATE Estimated 29.7 mL/min (>60); POTASSIUM 4.1 mmol/L (3.5-5.1)
[2017-02-03] MEDS ORDERED: ACETAMINOPHEN PO (13:05)
[2017-02-03] MEDS ORDERED: COREG3.125 MG PO (13:07)
[2017-02-03] MEDS ORDERED: BRILINTA90 MG PO (13:09)
[2017-02-03] MEDS ORDERED: ASPIRIN81 MG PO (13:09)
[2017-02-03] MEDS ORDERED: NITROGLYGERIN0.4 MG SL (13:11)
== END 2017-02-03 14:00 | disposition home or self-care (01) | DRG 246 ==
LOC: CED 09:09 → CEDOF 15:30 → C3A PCU 15:30 → CED 15:40 → CEDOF 15:40 → C3A PCU 17:15 → CEDOF 17:15 → C3A PCU 01-31 06:15 → C5C 02-02 16:18
PROVIDERS: Emergency Medicine; Family Medicine; Internal Medicine Cardiovascular Disease
PROC: B24BYZZ Ultrasonography of Heart with Aorta using Other Contrast (ICD-10-PCS; principal; 2017-01-31)
PROC: 027034Z Dilation of Coronary Artery, One Artery with Drug-eluting Intraluminal Device, Percutaneous Approach (ICD-10-PCS; 2017-02-02)
PROC: 4A023N7 Measurement of Cardiac Sampling and Pressure, Left Heart, Percutaneous Approach (ICD-10-PCS; 2017-02-02)
PROC: B215YZZ Fluoroscopy of Left Heart using Other Contrast (ICD-10-PCS; 2017-02-02)
PROC: B211YZZ Fluoroscopy of Multiple Coronary Arteries using Other Contrast (ICD-10-PCS; 2017-02-02)
DX: I25.10 Atherosclerotic heart disease of native coronary artery without angina pectoris (principal); I50.21 Acute systolic (congestive) heart failure; N17.9 Acute kidney failure, unspecified; I50.20 Unspecified systolic (congestive) heart failure; I07.1 Rheumatic tricuspid insufficiency; I12.9 Hypertensive chronic kidney disease with stage 1 through stage 4 chronic kidney disease, or unspecified chronic kidney disease; N18.2 Chronic kidney disease, stage 2 (mild); D50.9 Iron deficiency anemia, unspecified; E03.9 Hypothyroidism, unspecified; Z79.82 Long term (current) use of aspirin; K21.9 Gastro-esophageal reflux disease without esophagitis; E78.5 Hyperlipidemia, unspecified; S82.61XA Displaced fracture of lateral malleolus of right fibula, initial encounter for closed fracture; S82.51XA Displaced fracture of medial malleolus of right tibia, initial encounter for closed fracture; W01.0XXA Fall on same level from slipping, tripping and stumbling without subsequent striking against object, initial encounter; Y93.H2 Activity, gardening and landscaping; Y92.096 Garden or yard of other non-institutional residence as the place of occurrence of the external cause
CPT/HCPCS: 36415; 70450; 70551; 71010; 71250; 73100; 73610; 80048; 80053; 80061; 80076; 82550; 82553; 82607; 82728; 82947; 83540; 83550; 84443; 84484; 85025; 85027; 85347; 85610; 85730; 93005; 93306; 93880; 94760; 97110; 97116; 97162; 97166; 97530; 97535; 99285; C1725; C1769; C1874; C1887; C1894; G8978-GP; G8979-GP; G8987-GO; G8988-GO; J1327; J1644; J1956; J2250; J3010

== ENCOUNTER 2017-05-27 08:57 | Inpatient (IN) | payer OTHER ==
[~2017-05-27] VITALS: Ht 172.7 cm; Wt 64.0 kg
--- NOTE | ~2017-05-27 | CO ---
Unit #: [id number] #: [id number] Patient: MADISON BRIGGS [id number] [address] [place], [place] [address] [id number] I MR#: [id number] NAME: MADISON BRIGGS. ROOM: 312 Age: 76 Sex: M Admission Date: 05/27/2017 : 1940 Attending Physician: Virginia Alba M.D. Primary Care Physician: J Carlos Stahl Jr., M.D. Consultation Date: 05/29/2017 CONSULTATION REPORT REASON FOR CONSULTATION Positive blood cultures for Enterococcus. HISTORY OF PRESENT ILLNESS The patient is a pleasant 76-year-old male admitted with some cough going on for maybe 2 weeks or slightly more than that, and was seen by his primary care physician, given Levaquin, but did not feel any better. It looks like some outpatient lab work was done and he was contacted by the primary care to come to the emergency room. I am not sure what lab was abnormal. The patient does not know and it has not mentioned in the chart also. He was admitted and had chest x-ray showing bilateral infiltrates. He was started on azithromycin and Rocephin for pneumonia. His blood culture 1/[address] scan of the chest, abdomen, pelvis, and echo were done, reports are pending. He was started on vancomycin. Infectious Diseases consultation was requested for further evaluation and antibiotic management. PAST MEDICAL HISTORY 1. Right ankle fracture, status post conservative management. 2. Paget's disease with right humerus involvement. 3. Acute kidney injury. 4. Coronary artery disease, status post stent placement. 5. Valvular heart disease. 6. CHF. 7. Anemia. 8. Hypertension. 9. Hyperlipidemia. 10. Hypothyroidism. 11. Gastroesophageal reflux disease. SOCIAL HISTORY Noncontributory. FAMILY HISTORY Noncontributory. ALLERGIES No known drug allergies. CURRENT MEDICATIONS List reviewed. Antibiotics include vancomycin, Zithromax and Rocephin. PHYSICAL EXAMINATION Unit #: [id number] #: [id number] Patient: MADISON BRIGGS GENERAL: Sitting up comfortable, does not seem to be in any distress. VITAL SIGNS: Temperature 97.6, pulse 71, respirations 16, blood pressure 131/66. HEENT: Unremarkable. CHEST: Clear to auscultation. HEART: Normal S1, S2. ABDOMEN: Soft, nontender. EXTREMITIES: Shows no edema. DIAGNOSTIC STUDIES IMAGING STUDIES: Chest x-ray, bilateral infiltrates. LABORATORY RESULTS: BUN 48, creatinine 2.1, AST 121, ALT 98, alkaline phosphatase 125. Total CK 35. Troponin less than 0.03. BNP 197. WBC 13.7, hemoglobin 10, platelets 301. Urinalysis unremarkable. Blood culture, 09/28, Enterococcus; sensitivity is pending. Sputum culture is negative. ASSESSMENT 1. Enterococcal bacteremia. 2. Possible pneumonia. 3. History of Paget's disease. 4. Renal insufficiency. 5. Recent ankle fracture. PLAN At this time, I am not sure as to the source of the enterococcal bacteremia. Endovascular source is highly likely. I doubt it is related to his pneumonia with use of outpatient recent Levaquin. He is at increased risk of vancomycin resistant Enterococcus. Therefore, we will go ahead and discontinue his vancomycin, start him on daptomycin. In the mean time, continue him on azithromycin and Rocephin. Follow up on the results of CT scan of the chest, abdomen, pelvis, and 2D echo. May need transesophageal echo also. We will repeat blood cultures. Further recommendation depending upon the course. I would like to thank Dr. Alba for requesting us to participate in the care of this patient. We will follow this patient along with you. Dictated by... Dang Knott TD: 05/30/2017 03:29 JOB #: [id number] CONSULTATION REPORT Page 1 of 1 X Levy Heard MD CONSULTATION REPORT
--- NOTE | ~2017-05-27 | XA166 ---
[facility] A Service of [facility] RADIOLOGY TEXT RESULTS PATIENT: MADISON BRIGGS LOCATION: [facility] : 40 UNIT #: [id number] AGE: [address]: Virginia Alba MD SEX: M ORDER DR: [id number] [facility] [address] [place], [place] [address] [id number] I MR#: [id number] Acc #: [id number] NAME: MADISON BRIGGS. : 1940 SEX: M STUDY DATE/TIME: 06/01/2017 15:16 UNIT: A U ROOM: [facility] STUDY DESCRIPTION: XA PICC Line Placement WO Port Attending Physician: Virginia Alba M.D. Ordering Physician: Ilya Burroughs M.D. Primary Care Physician: J Carlos Stahl Jr., M.D. MEDICAL IMAGING REPORT This report is preliminary unless electronic signature is present EXAM Left-sided PICC line placement INDICATIONS Need for IV access in a patient with bacteremia. PRE-PROCEDURE The procedure was explained to the patient and/or patient ocean import representative including risks, benefits, potential complications and potential for alternative forms of treatment. Informed consent was obtained, and prior to initiating the procedure a formal timeout procedure was performed. PROCEDURE Using full standard sterile barrier technique, including caps, gowns, gloves, masks, as well as sterile skin preparation and standard sterile draping, the left arm was prepped and draped in the usual fashion, and real-time sterile ultrasound guidance was used to localize an arm vein and to confirm vessel patency. A hard copy ultrasound image was recorded. After local anesthesia with 1% Xylocaine, the vein was punctured using real-time sterile ultrasound guidance, and an 0.018 guidewire was advanced into the superior vena cava, using fluoroscopic guidance. A 4-Malawian single-lumen PICC was then measured and deployed with the tip positioned in the superior vena cava. The position of the line was documented with a radiographic image. The line was secured in place with an adhesive dressing and an antibiotic patch was applied. Total fluoro time was 0.1 minutes. AK was 1 mGy. IMPRESSION Successful placement of a 4-Malawian single-lumen PowerPICC via the arm under ultrasound and fluoroscopic guidance. The tip of the PICC is in good position in the superior vena cava. [facility] A Service of [facility] RADIOLOGY TEXT RESULTS PATIENT: MADISON BRIGGS LOCATION: [facility] 312-01 : 40 UNIT #: [id number] AGE: [address]: Virginia Alba MD SEX: M ORDER DR: Dictated by... Tammy Lewis M.D. THIS IS AN ELECTRONICALLY VERIFIED REPORT Tammy Lewis M.D. at 06/03/2017 2:44 PM AFF/psc TD: 06/02/2017 13:58 JOB #: [id number] MEDICAL IMAGING REPORT Page 1 of 1 COPY
--- NOTE | ~2017-05-27 | EKG ---
PATIENT: MADISON BRIGGS UNIT #: [id number] Ventricular Rate: 52 BPM Atrial Rate: 52 BPM P-R Interval: 150 ms QRS Duration: 96 ms Q-T Interval: 490 ms QTC Calculation(Bezet): 455 ms P [place]: 35 degrees Calculated R [place]: -9 degrees Calculated T [place]: 22 degrees Diagnosis Line: Sinus bradycardia Diagnosis Line: Otherwise normal ECG Diagnosis Line: When compared with ECG of 03-FEB-2017 06:00, Diagnosis Line: No significant change was found Diagnosis Line: Confirmed by NATANAEL BASHIR MD ([id number]) on Diagnosis Line: 05/28/2017 4:41:44 PM INTERPRETING MD: HANNA
--- NOTE | ~2017-05-27 | CT4 ---
[facility] A Service of [facility] & [facility] RADIOLOGY TEXT RESULTS PATIENT: MADISON BRIGGS LOCATION: [facility] - : 40 UNIT #: [id number] AGE: [address]: Virginia Alba MD SEX: M ORDER DR: [id number] [facility] [address] [place], [place] [address] [id number] I MR#: [id number] Acc #: [id number] NAME: MADISON BRIGGS : 1940 SEX: M STUDY DATE/TIME: 05/29/2017 12:13 UNIT: A U ROOM: [facility] STUDY DESCRIPTION: CT Abd and Pelv Wo Cont Attending Physician: Virginia Alba M.D. Ordering Physician: Virginia Alba M.D. Primary Care Physician: J Carlos Stahl Jr., M.D. MEDICAL IMAGING REPORT This report is preliminary unless electronic signature is present EXAM CT abdomen and pelvis without IV contrast COMPARISON October 11, 2012 CT chest dated January 30, 2017 and April 26, 2013. INDICATIONS 76-year-old male with bacteremia of uncertain etiology. History of hernia repair. FINDINGS Axial CT imaging abdomen and pelvis was performed with IV contrast. Coronal and sagittal reformats were constructed. Lack of IV contrast limits evaluation of adenopathy, vasculature and viscera. This CT exam was performed with one or more of the following radiation dose reduction techniques: automatic control, adjustment of mA and/or kV according to patient size, and iterative reconstruction. There is mild diffuse subcutaneous edema, most consistent with mild anasarca. There is grossly stable mixed sclerotic and lucent appearance of the left iliac bone and adjacent left sacrum, without particular expansion of the bone. Small posterior disc protrusion is seen at L4-L5. Predominately sclerotic appearance of the T11 vertebral body, with some internal lucency is also stable since that time, with similar appearance of the spinous process at that level as well. There is multilevel degenerative endplate change of the lumbar and thoracic spine. There are minimal right-sided coronary artery calcifications. There is normal heart size. Small hiatal hernia. There are trace bilateral pleural effusions with a band-like and consolidative attenuation seen in the dependent right lower lobe, suggesting atelectasis but pneumonia is not entirely excluded. There are band-like opacities with some STS. [facility] A Service of [facility] & [facility] RADIOLOGY TEXT RESULTS PATIENT: MADISON BRIGGS LOCATION: A 312-01 : 40 UNIT #: [id number] AGE: [address]: Virginia Alba MD SEX: M ORDER DR: consolidation in the dependent left lower lobe, with same differential diagnosis, actually favored to reflect atelectasis. Band-like atelectasis also noted in the lingula. Calcified granulomas in the liver and spleen. There is hypoattenuation of the blood pool relative to the myocardium suggesting anemia. The gallbladder is contracted with an internal gallstone. No CT findings of acute cholecystitis. Biliary caliber is normal. Pancreas and adrenal glands are unremarkable. No hydronephrosis or hydroureter. No renal or ureteral calculi. Urinary bladder is unremarkable. There are bilateral pelvic phleboliths. There is nonspecific mildly increased bilateral perinephric stranding with increased diffuse haziness of the mesenteric fat and a small amount of free fluid within the left pelvis, findings suggestive again of anasarca. There is central prostatic calcification, a nonspecific finding. The prostate is otherwise normal in size and shape. Trace mild fluid in the inferior left pericolic gutter. Sigmoid diverticulosis without evidence of acute diverticulitis. The appendix is normal. No pneumoperitoneum. Abdominal aorta is normal in caliber. There are calcifications at the origins of the renal arteries, celiac artery and superior mesenteric artery. No evidence of bowel obstruction. No adenopathy in the and abdomen or pelvis. IMPRESSION 1. Diffuse subcutaneous edema and diffuse edema within the mesentery and perinephric fat, findings suggestive of anasarca. There is also hypoattenuation of the blood relative to the myocardium suggesting anemia. 2. There are trace bilateral pleural effusions perhaps associated with hypoproteinemic state. There are band-like opacities in the left lower lobe favoring atelectasis and there are band-like and consolidative opacities in the dependent right lower lobe which would seem in keeping with atelectasis but pneumonia cannot be excluded. 3. Small posterior disc protrusion at L4-L5. 4. Stable sclerotic and lucent appearance of the left iliac bone and of the left lateral sacrum and of the T11 vertebral body and its posterior elements, findings suggestive of Paget disease of bone. 5. Minimal right-sided coronary artery calcification. Arterial calcifications of the abdomen and pelvis as described in the body of the report. 6. Small hiatal hernia. 7. Cholelithiasis without evidence of acute cholecystitis. 8. Sigmoid diverticulosis without evidence of acute diverticulitis. 9. Small amount free fluid in the inferior left pericolic gutter and pelvis, likely due to hypoproteinemic state. Dictated by... Bala Kowalski M.D. [facility] A Service of [facility] RADIOLOGY TEXT RESULTS PATIENT: MADISON BRIGGS LOCATION: [place] [address] : 40 UNIT #: [id number] AGE: [address]: Virginia Alba MD SEX: M ORDER DR: THIS IS AN ELECTRONICALLY VERIFIED REPORT Bala Kowalski M.D. at 06/06/2017 9:12 AM COLLIN/beverly TD: 05/30/2017 01:01 JOB #: [id number] MEDICAL IMAGING REPORT Page 1 of 1 COPY
--- NOTE | ~2017-05-27 | CO ---
Unit #: [id number] #: [id number] Patient: MADISON BRIGGS [id number] [address] [place], [place] [address] [id number] I MR#: [id number] NAME: MADISON BRIGGS. ROOM: 312 Age: 76 Sex: M Admission Date: 05/27/2017 : 1940 Attending Physician: Virginia Alba M.D. Primary Care Physician: J Carlos Stahl Jr., M.D. Consultation Date: 05/27/2017 CONSULTATION REPORT NEPHROLOGY CONSULTATION REQUESTING PHYSICIAN Dr. Valdez CONSULTING PHYSICIAN Dr. Carlos Maldonado REASON FOR CONSULT Acute on chronic renal failure. DATE OF CONSULTATION May 27, 2017. Thank you very much for this consultation. HPI Patient is a pleasant 76-year-old white male who has a known history of CKD stage 3-4. He follows with me as an outpatient and was seen earlier this month. His creatinine at that time was 2.3 which is his new baseline. His CKD is felt to be due to hypertension. He presented to the emergency room today after a couple of weeks of progressively lingering cough, subjective fevers, some shortness of breath though none at present. He did his see his primary care doctor earlier this week and was given steroid taper an some antibiotics but did not have any improvement. Upon presentation to the emergency room, he had a CT scan which did show a multifocal pneumonia. His white blood cell counts were elevated. His creatinine was 2.3 in the ER with a sodium of 128. He states he has had some poor p.o. intake recently. No chest pain, no nausea, vomiting, diarrhea. No hematuria or dysuria. No other complaints. PAST MEDICAL HISTORY Significant for: 1. CKD stage 3-4. Baseline creatinine is around 2.3 as of most recently. 2. Coronary artery disease, congestive heart failure and valvular heart disease, recently evaluated on prior admission. 3. Hypertension. 4. Hyperlipidemia. 5. Anemia. 6. GERD. 7. Hypothyroidism. SURGICAL HISTORY Unit #: [id number] #: [id number] Patient: MADISON BRIGGS Surgical history of: 1. Cardiac cath with stent placement. 2. Hernia repair. 3. EGD and colonoscopy. SOCIAL HISTORY Lives at home with his . Denies tobacco, alcohol or illicits. FAMILY HISTORY Noncontributory. ALLERGIES No known drug allergies. MEDICATIONS Home medications are: 1. Coreg. 2. Brilinta. 3. Lipitor. 4. Aspirin. 5. Phenergan. 6. Nitro p.r.n. 7. Levothyroxine. 8. Recently he was given a Medrol Dosepak and Levaquin from his primary care physician. REVIEW OF SYSTEMS A 12 system review of systems is negative except as per HPI. PHYSICAL EXAM VITAL SIGNS: Blood pressure 100s-120s/40s-80s, heart rate 50s to 60s, respiration 16-18, T-max 98.2. GENERAL: He is in no acute distress. HEAD: Is normocephalic, atraumatic. ENT: Pupils equally round and reactive to light. Oropharynx is clear. NECK: Supple. No JVD. LUNGS: Clear to auscultation bilaterally with no wheezes, rhonchi or crackles. HEART: Regular rate and rhythm. No murmurs, gallops or rubs. ABDOMEN: Soft, nontender, nondistended with positive bowel sounds. EXTREMITIES: He has no edema. NEURO: Cranial nerves II-XII are intact to testing. Gait was not assessed. DIAGNOSTIC STUDIES LABS: Sodium 128, potassium 4.2, chloride 97, bicarb 22, BUN 35, creatinine 2.3, glucose 211, calcium 8.4, white count 13, hemoglobin 10.4, platelets 278. Urine sodium of 19, urine osmo of 183. IMAGING: CT scan of the chest shows multifocal pneumonia. IMPRESSION/PLAN 1. CKD stage 3-4. Creatinine does appear close to baseline. CKD is secondary to hypertension. 2. Hyponatremia. Patient with hypovolemic hyponatremia secondary to poor p.o. intake as verified by his urine studies. Unit #: [id number] #: [id number] Patient: MADISON BRIGGS 3. Pneumonia. 4. Anemia. 5. CHF/CAD. 6. Valvular heart disease. 7. Elevated LFTs. PLAN Agree with IV antibiotics as started by primary. Will give gentle IV hydration with normal saline and continue to avoid nephrotoxins and dose-adjust all medications for his reduced GFR. Will have further recommendations as his hospital course progresses. Dictated by... AdelsoDang Stein TD: 05/28/2017 12:46 JOB #: [id number] CONSULTATION REPORT Page 1 of 1 X Carlos Maldonado MD CONSULTATION REPORT
--- NOTE | ~2017-05-27 | HP ---
Unit #: [id number] #: [id number] Patient: MADISON BRIGGS [id number] [facility]. [place], [place] [address] [id number] MR#: [id number] NAME: MADISON BRIGGS ROOM: Age: 76 Sex: M Admission Date: 05/27/2017 : 1940 Attending Physician: Hunter Simpson D.O. Primary Care Physician: J Carlos Stahl Jr., M.D. HISTORY AND PHYSICAL CHIEF COMPLAINT Pneumonia. HPI The patient is a 76-year-old male with past medical history of anemia, chronic kidney disease, coronary artery disease, valvular heart disease, CHF, hypertension, hyperlipidemia, hypothyroidism, GERD who presented to the emergency department for evaluation of the above. The patient states that he has had a 1-2 week history of productive cough, fever, and chills. He denies shortness of breath. No chest pain. He saw his primary care physician on May 24, 2017. He was prescribed Levaquin and Medrol Dosepak. He has been taking those. Lab work was done. He was called by his primary care physician and told to come to the emergency department due to abnormal labs. The patient states that he has had somewhat decreased appetite. He denies any vomiting or diarrhea. No urinary symptoms. Upon arrival in the emergency department, temperature was 97.5, pulse 60, blood pressure 104/48, oxygen saturation 99% on room air. Laboratory notable for white blood cell count of 13, BUN and creatinine 35 and 2.3, respectively. He was given Rocephin and azithromycin. He is being admitted to [facility] for evaluation and further treatment. PAST MEDICAL HISTORY 1. Admission to [facility] January 30 through the 2016 for syncope with right ankle fracture. He was seen by orthopedic services and placed in a walking boot. 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 He also underwent 2D echocardiogram that showed valvular heart disease, tricuspid regurgitation, as well as new systolic heart failure with an ejection fraction of 35% to 40%. He was seen in consultation by Dr. Camarena. Additionally, creatinine was noted to be elevated and he was seen in consultation by Dr. Maldonado. The patient also underwent cardiac catheterization that showed a 99% lesion in the proximal left circumflex. He underwent stent placement. 2. Chronic kidney disease with a baseline creatinine of 1.8-2. The patient has seen Dr. Maldonado. 3. Coronary artery disease, status post cardiac stent placement, followed by Dr. Camarena. 4. Valvular heart disease, as noted on echocardiogram in January of 2017 (tricuspid regurgitation). 5. Congestive heart failure with ejection fraction of 35% to 40% noted Unit #: [id number] #: [id number] Patient: MADISON BRIGGS on echocardiogram in January of 2017. 6. Anemia. 7. Hypertension. 8. Hyperlipidemia. 9. Hypothyroidism. 10. GERD. PAST SURGICAL HISTORY 1. Cardiac catheterization. 2. Cardiac stent placement. 3. Hernia repair. 4. EGD and colonoscopy. SOCIAL HISTORY The patient lives with his . There is no tobacco or alcohol use. FAMILY HISTORY Notable for his dad having a cerebrovascular accident. ALLERGIES No known allergies. HOME MEDICATIONS 1. Medrol Dosepak. 2. Levothyroxine. 3. Nitroglycerin. 4. Promethazine. 5. Aspirin. 6. Lipitor. 7. Levaquin. 8. Brilinta. 9. Coreg. Home medications will need to be reviewed and verified. REVIEW OF SYSTEMS A complete review of systems is negative, except as indicated in HPI. The patient denies taking any [id number] nonsteroidal anti-inflammatory medications. DIAGNOSTIC TESTS IMAGING: Chest x-ray shows improving right basilar airspace changes with new airspace change at the left lung base concerning for multifocal pneumonia. LABORATORY: Urinalysis notable for 2+ blood. BNP is 197. Comprehensive metabolic panel notable for sodium of 128; chloride is 97; glucose 211; BUN and creatinine 35 and 2.3, respectively; AST and ALT are 90 and 63, respectively; alkaline phosphatase 142; albumin is 2.4. Troponin less than 0.05. Complete blood count notable for white blood cell count of 13, hemoglobin and hematocrit 10.4 and 30.5, respectively. PHYSICAL EXAM VITAL SIGNS: Temperature is 97.5, pulse 60, respirations 18, blood pressure 104/48, oxygen saturation 99% on room air. GENERAL: The patient is a male who is awake and alert in no acute distress. HEENT: The head is atraumatic. Mucous membranes are moist. Unit #: [id number] #: [id number] Patient: MADISON BRIGGS NECK: Supple. Trachea is midline. CARDIOVASCULAR: Regular rate and rhythm. LUNGS: Demonstrate decreased breath sounds bilaterally. Breathing is not labored with conversation. ABDOMEN: Soft and nontender with bowel sounds present in all four quadrants. EXTREMITIES: Nontender with no pedal edema. NEURO: The patient is awake and alert. He follows commands. PSYCH: Mood and affect are normal. The patient is cooperative. SKIN: Skin of examined areas is warm and dry. ASSESSMENT The patient is a 76-year-old male with: 1. Pneumonia that has failed outpatient treatment with Levaquin. 2. Leukocytosis with no other SIRS criteria. The patient has been on Medrol Dosepak. 3. Anemia. The patient's hemoglobin was 10 on February 03, 2017. It is 10.4 today. 4. Acute on chronic kidney disease. The patient has seen Dr. Maldonado in the past. Creatinine was 2.1 on February 03, 2017. Baseline is around 1.8. Today, creatinine is 2.3. 5. Hyponatremia. The patient's sodium was 137 on February 03, 2017. It is 128 today. Sodium has previously been normal. 6. Transaminitis with AST and ALT of 90 and 63, respectively. LFTs have previously been normal. 7. Hyperglycemia. I do not see a hemoglobin A1c in Give[employer]. The patient denies history of diabetes. 8. Coronary artery disease, status post stent placement, followed by Dr. Camarena. 9. Valvular heart disease, tricuspid regurgitation. 10. Congestive heart failure with ejection fraction of 35% to 40% noted in January of 2017. 11. Hypertension. 12. Hyperlipidemia. 13. Hypothyroidism. 14. Gastroesophageal reflux disease. PLAN 1. Admit to an intermediate level. 2. Healthy heart diet if passes bedside swallow. 3. Supplemental oxygen. 4. Blood cultures x2. 5. Sputum culture and sensitivity. 6. Procalcitonin level. 7. Rocephin and azithromycin. 8. Mucinex 600 mg p.o. b.i.d. 9. DuoNebs q.4 hours p.r.n. 10. Serial cardia enzymes. 11. Consult Dr. Maldonado regarding acute on chronic kidney disease. 12. Hemoglobin A1c. 13. Urine sodium and osmolality. 14. Serum osmolality. 15. Strict Is and Os. 16. Repeat labs in the morning. 17. SCDs for DVT prophylaxis. 18. Additional workup and consultants based on above. Unit #: [id number] #: [id number] Patient: MADISON BRIGGS Dictated by Dang Maria/latoya TD: 05/27/2017 12:46 JOB #: [id number] HISTORY AND PHYSICAL Page 1 of 1 X Tami Valdez MD X HISTORY AND PHYSICAL
--- NOTE | ~2017-05-27 | DS ---
Unit #: [id number] #: [id number] Patient: MADISON BRIGGS [id number] [address] [place], [place] [address] [id number] I MR#: [id number] NAME: MADISON BRIGGS. ROOM: 312 Age: 76 Sex: M Admission Date: 05/27/2017 : 1940 Discharge Date: Attending Physician: Virginia Alba M.D. Primary Care Physician: J Carlos Stahl Jr., M.D. DISCHARGE SUMMARY FINAL DIAGNOSES 1. Pneumonia. 2. Enterococcus bacteremia, transient unclear source. SECONDARY DIAGNOSES 1. Chronic kidney disease. 2. Coronary artery disease. 3. Valvular heart disease. 4. Congestive heart failure. 5. Hypertension. 6. Hyperlipidemia. 7. Hypothyroidism. 8. Gastroesophageal reflux disease. CONSULTS 1. Dr. Heard, Infectious Disease. 2. Nephrology, Dr. Amos and Dr. Maldonado. HOSPITAL COURSE Patient is a 76-year-old gentleman, who basically presented with symptoms of pneumonia. He was seen, evaluated, and treated. He did have a CAT scan of his abdomen and pelvis with IV contrast which showed cholelithiasis without evidence of cholecystitis, a small hiatal hernia, trace bilateral pleural effusion associated with hyperproteinemic state. He had consolidative opacities in dependent right lower lobe in keeping with atelectasis but pneumonia could not be excluded. He was seen by infectious disease. His blood culture did grow enterococcus sensitive to ampicillin. Infectious disease recommendation is for outpatient discharge for transient bacteremia with a 14-day course of IV ampicillin. PICC line will be placed and will get IV antibiotics for 11 days. I ordered CBC, BMP q. Wednesday and to send to Dr. Heard's office. manager spring will arrange this prior to discharge. DISCHARGE MEDICATIONS 1. Medrol Dosepak. 2. Promethazine 5 mL p.o. q.4 hour p.r.n. 3. Lipitor 80 mg at bedtime. 4. Coreg 3.125 mg p.o. b.i.d. 5. Aspirin 81 mg p.o. daily. 6. Brilinta 90 mg p.o. b.i.d. 7. Tirosint 25 mcg p.o. daily. 8. Nitroglycerin tab 0.4 mg sublingual q.5 minutes p.r.n. chest pain. PLAN Unit #: [id number] #: [id number] Patient: MADISON BRIGGS 1. CBC and BMP q. Wednesday and this will be sent to Dr. Heard's office. 2. Followup with PCP in the next three to five days. 3. IV ampicillin 2 g IV q.6 x11 days. Time spent coordinating discharge about 46 minutes. Dictated by... Dang Brownlee/viviana TD: 06/01/2017 13:38 JOB #: [id number] CC: J Carlos Stahl Jr., M.D. DISCHARGE SUMMARY Page 1 of 1 X Ilya Burroughs MD X DISCHARGE SUMMARY
--- NOTE | ~2017-05-27 | CR72 ---
[facility] A Service of [facility] RADIOLOGY TEXT RESULTS PATIENT: MADISON BRIGGS LOCATION: [facility] : 40 UNIT #: [id number] AGE: [address]: Hunter Simpson DO SEX: M ORDER DR: [id number] [facility] [address] [place], [place] [address] [id number] E MR#: [id number] Acc #: [id number] NAME: MADISON BRIGGS : 1940 SEX: M STUDY DATE/TIME: 05/27/2017 UNIT: [facility] ROOM: STUDY DESCRIPTION: CR Chest Single View Portable Attending Physician: Hunter Simpson D.O. Ordering Physician: Hunter Simpson D.O. Primary Care Physician: J Carlos Stahl Jr., M.D. MEDICAL IMAGING REPORT This report is preliminary unless electronic signature is present EXAM Chest 05/27/2017 0954 hours HISTORY 76-year-old man with cough and congestion for 1 week. COMPARISON 05/25/2017 FINDINGS Single upright portable film demonstrates normal heart size with stable mediastinal and hilar contours. The right basilar airspace change has improved slightly. There is new airspace change. There is new airspace density in the left lower lobe which could represent pneumonia or aspiration. The upper lungs remain clear. Stable bone changes of the right humerus consistent with Paget's disease. IMPRESSION There is improving right basilar airspace changes compared to 05/25/2017, with new airspace change at the left lung base. This could represent multifocal pneumonia or aspiration. No effusions seen. Dictated by... Veronica Farmer M.D. THIS IS AN ELECTRONICALLY VERIFIED REPORT Veronica Farmer M.D. at 05/27/2017 12:52 PM Anais TD: 05/27/2017 11:43 JOB #: [id number] [facility] A Service [facility] RADIOLOGY TEXT RESULTS PATIENT: MADISON BRIGGS LOCATION: [facility] : 40 UNIT #: [id number] AGE: [address]: Hunter Simpson DO SEX: M ORDER DR: MEDICAL IMAGING REPORT Page 1 of 1 COPY
[~2017-05-27 08:57] MED LIST changes: +ACETAMINOPHEN PO; +ASPIRIN81 MG PO; +BRILINTA90 MG PO; +COREG3.125 MG PO; +NITROGLYGERIN0.4 MG SL; +PRAVASTATIN SOD40 MG PO; +SYNTHROID PO
[2017-05-27] MEDS ORDERED: PATIENT'S PHARMACY (09:25)
[2017-05-27] MEDS ORDERED: MEDROL DOSEPAK4 MG (09:26)
[2017-05-27] MEDS ORDERED: TIROSINT25 MCG PO (09:26)
[2017-05-27] MEDS ORDERED: NITROGLYCERIN0.4 MG SL (09:27)
[2017-05-27] MEDS ORDERED: ASPIRIN81 M2 PO (09:28)
[2017-05-27] MEDS ORDERED: PROMETHAZI6.25 MG/5 PO (09:28)
[2017-05-27] MEDS ORDERED: LIPITOR PO (09:28)
[2017-05-27] MEDS ORDERED: BRILINTA90 MG PO (09:29)
[2017-05-27] MEDS ORDERED: COREG3.125 MG PO (09:29)
[2017-05-27] MEDS ORDERED: LEVAQUIN PO (09:29)
[2017-05-27 10:03] LABS: BASOPHIL% 0.1 % (0-2.5); HEMATOCRIT 30.5 % (38.0-50.0); HEMOGLOBIN 10.4 gm/dL (13.0-16.0); LYMPHOCYTE# 0.6 X10e3 (1.0-3.5); LYMPHOCYTE% 4.6 % (17.0-45.0); MEAN CELL VOLUME 90.2 FL (83-96); MEAN CORPUSCULAR HEMOGLOBIN 30.7 PG (28-34); MEAN PLATELET VOLUME 9.6 FL (6.5-11.5); MONOCYTE# 0.3 X10e3 (0-1.0); MONOCYTE% 2.4 % (3.0-12.0); NEUTROPHIL# 12.1 X10e3 (1.5-7.1); NEUTROPHIL% 92.9 % (40-75); PLATELET COUNT 278 X10e3 (140-420); RED BLOOD COUNT 3.38 X10e (3.90-5.60); RED CELL DISTRIBUTION WIDTH 14.4 % (11.0-15.5)
[2017-05-27 10:04] LABS: DIFF IND NO
[2017-05-27 10:21] LABS: POC - CKMB 2.9 ng/mL (0.0-7.9); POC - TROPONIN <0.05 ng/mL (<=0.05)
[2017-05-27 10:33] LABS: ALBUMIN SERUM 2.4 g/dL (3.5-5.0); BILIRUBIN, DIRECT 0.2 mg/dL (0.0-0.2); BILIRUBIN,INDIRECT 0.5 mg/dL (0.0-0.9); BILIRUBIN,TOTAL 0.7 mg/dL (0.2-2.0); BUN/CREATININE RATIO 15.21; CALCIUM SERUM 8.4 mg/dL (8.4-10.2); CREATININE SERUM 2.3 mg/dL (0.6-1.4); GLOM FILT RATE Estimated 26.6 mL/min (>60); POTASSIUM 4.2 mmol/L (3.5-5.1); PROTEIN TOTAL SERUM 7.3 g/dL (6.0-8.3)
[2017-05-27 11:24] LABS: URINE SOURCE CLEAN CATCH
[2017-05-27 11:32] LABS: URINE APPEARANCE CLEAR; URINE BILIRUBIN NEG (NEG); URINE BLOOD 2+ (NEG); URINE COLOR YELLOW; URINE GLUCOSE NEG (NEG); URINE KETONE NEG (NEG); URINE LEUKOCYTE ESTERASE NEG (NEG); URINE NITRATE NEG (NEG); URINE PROTEIN NEG (NEG); URINE SPECIFIC GRAVITY 1.008 (1.003-1.035); URINE UROBILINOGEN 0.2 MG/DL (NEG)
[2017-05-27 11:50] LABS: URBCS1 AUWI 0-2 /[HPF] (0-2)
[2017-05-27 11:56] LABS: CULTURE INDICATED? NO
[2017-05-27 13:16] LABS: SODIUM URINE RANDOM 19 mmol/L
[2017-05-27 13:28] LABS: OSMOLALITY,URINE 183 mOsmo/kg (250-900)
[2017-05-27 18:19] LABS: PROCALCITONIN 0.87 NG/ML
[2017-05-27 21:49] LABS: CK TOTAL 33 IU/L (36-174)
[2017-05-28 06:37] LABS: BASOPHIL% 0.1 % (0-2.5); HEMATOCRIT 31.3 % (38.0-50.0); HEMOGLOBIN 10.5 gm/dL (13.0-16.0); LYMPHOCYTE# 0.5 X10e3 (1.0-3.5); LYMPHOCYTE% 4.1 % (17.0-45.0); MEAN CELL VOLUME 90.7 FL (83-96); MEAN CORPUSCULAR HEMOGLOBIN 30.4 PG (28-34); MEAN CORPUSCULAR HGB CONC 33.5 g/dL (30-36); MEAN PLATELET VOLUME 9.2 FL (6.5-11.5); MONOCYTE# 0.3 X10e3 (0-1.0); MONOCYTE% 2.2 % (3.0-12.0); NEUTROPHIL# 12.2 X10e3 (1.5-7.1); NEUTROPHIL% 93.6 % (40-75); PLATELET COUNT 265 X10e3 (140-420); RED BLOOD COUNT 3.45 X10e (3.90-5.60); RED CELL DISTRIBUTION WIDTH 14.8 % (11.0-15.5)
[2017-05-28 06:44] LABS: DIFF IND NO
[2017-05-28 07:43] LABS: ALBUMIN SERUM 2.3 g/dL (3.5-5.0); BILIRUBIN,TOTAL 0.4 mg/dL (0.2-2.0); CALCIUM SERUM 8.6 mg/dL (8.4-10.2); GLOM FILT RATE Estimated 31.5 mL/min (>60); MAGNESIUM 2.3 mg/dL (1.6-3.0); PHOSPHOROUS 3.7 mg/dL (2.5-4.6); PROTEIN TOTAL SERUM 6.8 g/dL (6.0-8.3)
[2017-05-28 07:48] LABS: POTASSIUM 5.7 mmol/L (3.5-5.1)
[2017-05-29 05:17] LABS: HEMATOCRIT 30.3 % (38.0-50.0); MEAN CELL VOLUME 90.9 FL (83-96); MEAN CORPUSCULAR HEMOGLOBIN 30.1 PG (28-34); MEAN CORPUSCULAR HGB CONC 33.1 g/dL (30-36); MEAN PLATELET VOLUME 9.3 FL (6.5-11.5); RED BLOOD COUNT 3.33 X10e (3.90-5.60); RED CELL DISTRIBUTION WIDTH 14.7 % (11.0-15.5); WHITE BLOOD COUNT 13.7 X10e3 (4.0-10.5)
[2017-05-29 06:08] LABS: BUN/CREATININE RATIO 22.85; CALCIUM SERUM 8.5 mg/dL (8.4-10.2); CREATININE SERUM 2.1 mg/dL (0.6-1.4); GLOM FILT RATE Estimated 29.7 mL/min (>60); MAGNESIUM 2.1 mg/dL (1.6-3.0); POTASSIUM 4.9 mmol/L (3.5-5.1)
[2017-05-30 04:50] LABS: HEMATOCRIT 29.8 % (38.0-50.0); HEMOGLOBIN 9.9 gm/dL (13.0-16.0); MEAN CELL VOLUME 91.4 FL (83-96); MEAN CORPUSCULAR HEMOGLOBIN 30.3 PG (28-34); MEAN CORPUSCULAR HGB CONC 33.2 g/dL (30-36); MEAN PLATELET VOLUME 9.2 FL (6.5-11.5); RED BLOOD COUNT 3.26 X10e (3.90-5.60); WHITE BLOOD COUNT 12.4 X10e3 (4.0-10.5)
[2017-05-30 06:14] LABS: BUN/CREATININE RATIO 25.26; CALCIUM SERUM 8.4 mg/dL (8.4-10.2); CREATININE SERUM 1.9 mg/dL (0.6-1.4); GLOM FILT RATE Estimated 33.5 mL/min (>60)
[2017-05-31 05:12] LABS: HEMATOCRIT 27.6 % (38.0-50.0); HEMOGLOBIN 9.4 gm/dL (13.0-16.0); MEAN CELL VOLUME 90.2 FL (83-96); MEAN CORPUSCULAR HEMOGLOBIN 30.7 PG (28-34); MEAN PLATELET VOLUME 8.6 FL (6.5-11.5); RED BLOOD COUNT 3.06 X10e (3.90-5.60); RED CELL DISTRIBUTION WIDTH 14.9 % (11.0-15.5)
[2017-05-31 06:37] LABS: BUN/CREATININE RATIO 21.73; CALCIUM SERUM 8.1 mg/dL (8.4-10.2); CREATININE SERUM 2.3 mg/dL (0.6-1.4); GLOM FILT RATE Estimated 26.6 mL/min (>60); POTASSIUM 4.5 mmol/L (3.5-5.1)
[2017-06-01] MEDS ORDERED: ATORVASTATIN CA80 MG PO (12:54)
[2017-06-01] MEDS ORDERED: AMPICILLIN SODIU2 GM IV (12:56)
== END 2017-06-01 16:30 | disposition home health service (06) | DRG 194 ==
LOC: CED 08:57 → C3A PCU 12:35 → CEDOF 12:35 → CED 13:07 → CEDOF 13:07 → C3A PCU 15:34 → CEDOF 15:34 → C3A PCU 05-28 08:04
PROVIDERS: Emergency Medicine; Family Medicine; Internal Medicine Nephrology
PROC: 02HV33Z Insertion of Infusion Device into Superior Vena Cava, Percutaneous Approach (ICD-10-PCS; principal; 2017-06-01)
DX: J18.9 Pneumonia, unspecified organism (principal); N17.9 Acute kidney failure, unspecified; E87.2 Acidosis; N18.4 Chronic kidney disease, stage 4 (severe); J90 Pleural effusion, not elsewhere classified; I13.0 Hypertensive heart and chronic kidney disease with heart failure and stage 1 through stage 4 chronic kidney disease, or unspecified chronic kidney disease; E87.1 Hypo-osmolality and hyponatremia; I50.9 Heart failure, unspecified; B95.2 Enterococcus as the cause of diseases classified elsewhere; D64.9 Anemia, unspecified; K80.20 Calculus of gallbladder without cholecystitis without obstruction; K44.9 Diaphragmatic hernia without obstruction or gangrene; I25.10 Atherosclerotic heart disease of native coronary artery without angina pectoris; E78.5 Hyperlipidemia, unspecified; E03.9 Hypothyroidism, unspecified; K21.9 Gastro-esophageal reflux disease without esophagitis; R73.9 Hyperglycemia, unspecified; Z95.5 Presence of coronary angioplasty implant and graft; Z79.82 Long term (current) use of aspirin; Z79.899 Other long term (current) drug therapy
CPT/HCPCS: 36415; 71010; 71250; 74176; 76937; 77001; 80048; 80053; 80076; 81003; 82308; 82550; 82553; 82728; 83036; 83540; 83735; 83880; 83930; 83935; 84100; 84132; 84300; 84484; 85025; 85027; 87040; 87070; 87077; 87186; 87205; 93005; 93306; 94640; 94760; 96365; 99285; C1751; J0290; J0456; J0696; J0878; J1642; J2930; J3370